=== PATIENT | female | born 2000 | race Two or more races ===

== ENCOUNTER 2021-01-16 18:40 | Inpatient (IN) | payer OTHER ==
[~2021-01-16] VITALS: Ht 317.5 cm; Wt 78.5 kg
[2021-01-16] MEDS ORDERED: PRENATAL TABLE1 EAC1 PO (19:01)
[2021-01-16] MEDS ORDERED: IRON236 MG (19:01)
[2021-01-16] MEDS ORDERED: FOLIC ACID20 MG (19:01)
== END 2021-01-19 14:12 | disposition home or self-care (01) | DRG 807 ==
LOC: OBS/DEL 18:40 → LDR 01-17 10:54 → OB/GYN 01-18 03:59
PROVIDERS: ADMIT Obstetrics & Gynecology; ATTEND Obstetrics & Gynecology
PROC: 10E0XZZ Delivery of Products of Conception, External Approach (ICD-10-PCS; principal; 2021-01-17)
PROC: 4A1HXFZ Monitoring of Products of Conception, Cardiac Rhythm, External Approach (ICD-10-PCS; 2021-01-17)
PROC: 0W8NXZZ Division of Female Perineum, External Approach (ICD-10-PCS; 2021-01-17)
DX: O48.0 Post-term pregnancy (principal); Z37.0 Single live birth; Z3A.41 41 weeks gestation of pregnancy